=== PATIENT | male | born 1970 | race Caucasian/White ===

== ENCOUNTER → 2020-09-27 | Outpatient (CLI) | payer OTHER ==
[~2020-09-27] VITALS: Ht 180.3 cm; Wt 83.9 kg
[~2020-09-27] MED LIST: GABA600T PO; OMEP20CA16 PO; SINCALIDE 1.7 MCG in IV NORMAL SALINE 50ML 30 ML IV ONE
--- NOTE | 2020-09-27 09:24 | RAD ---
STUDY: Realtime grayscale and color Doppler ultrasonography of the right upper quadrant INDICATION: Right upper quadrant pain. Nausea. COMPARISON: None. Findings: Gallbladder wall thickness is within normal limits at 3 mm. No stones or sludge visualized. Normal common bile duct diameter at 0.5 cm. Normal size and echotexture of the liver. Patent main portal vein with hepatopedal flow. What is seen of the pancreas is unremarkable. The right kidney measures 11.8 cm in length. Normal cortical thickness and echogenicity. No hydronephrosis. Unremarkable IVC at the liver. Impression: Unremarkable right upper quadrant sonogram. No gallstones or abnormal gallbladder wall thickening. Electronically signed by: LEO DYER MD (09/27/2020 9:21 AM) [id number]
--- NOTE | 2020-09-27 12:00 | RAD ---
EXAM: Nuclear hepatobiliary scan. HISTORY: Epigastric pain. Nausea. TECHNIQUE: Following intravenous administration of 5.5 mCi Tc 99m Choletec, anterior images of the abdomen were obtained at five minute intervals through one hour. Subsequently, 1.7 mcg sincalide was administered and additional images to assess gallbladder ejection fraction were obtained. FINDINGS: There is prompt radiotracer uptake by the liver. No focal defect is seen. There is normal excretion into the biliary tree. The gallbladder is visualized within 5 minutes and there is free flow into the duodenum. The gallbladder ejection fraction is 54 percent. IMPRESSION: Normal radionuclide biliary scan. Electronically signed by: Katy Gutierrez MD (09/27/2020 11:57 AM) [id number]
== END ==
LOC: US 06:43
PROVIDERS: ATTEND Internal Medicine Gastroenterology
DX: R11.0 Nausea (principal); R10.13 Epigastric pain
CPT/HCPCS: 76705; 78227; A9537; J2805